=== PATIENT | male | born 1945 | race Caucasian/White ===

== ENCOUNTER 2016-11-07 09:59 | Emergency (ER) | payer OTHER ==
[~2016-11-07] VITALS: Ht 177.8 cm; Wt 102.0 kg
[~2016-11-07 09:59] MED LIST: Z.0.NO CURRENT MEDS
[2016-11-07 10:02] VITALS: BP 159/96; PULSE 76; RESP 16; TEMP 98.1; O2SAT 97
[2016-11-07] MEDS ORDERED: TRAM50TA PO (10:21)
[2016-11-07] MEDS ORDERED: LIDOCAINE HCL 1% 50 ML VIAL INFIL ONE (10:30)
[2016-11-07] MEDS ORDERED: TETANUS/DIPHTHERIA TOXOID ADULT 0.5 ML VIAL IM ONE (10:30)
--- NOTE | 2016-11-07 11:50 | RADHPO ---
EXAM DATE/TIME: 11/07/2016 10:27 [place] COMPARISON: No previous studies available for comparison. INDICATIONS : Laceration to distal left 3rd digit. MEDICAL HISTORY : Hypercholesterolemia. SURGICAL HISTORY : Appendectomy. Tibi/fiblual surgery. ENCOUNTER: Initial ACUITY: 1 day PAIN SCORE: 8/10 LOCATION: Left distal 3rd digit FINDINGS: Examination of the third digit of the left hand demonstrates no evidence of fracture or dislocation. No radiopaque foreign bodies are seen. However, there is suggestion of a soft tissue avulsion of the very tip of the third digit. CONCLUSION: 1. Radiographic findings concerning for soft tissue avulsion of the very tip of the third digit. 2. No acute fracture Estevan Varma MD on November 07, 2016 at 11:47 Board Certified Radiologist. This report was verified electronically.
--- NOTE | 2016-11-07 12:24 | PD ---
Physical Exam Date Seen by Provider: Nov 07, 2016 Time Seen by Provider: 12:19 Narrative Patient is a 71-year-old male presenting with avulsion injury to the distal third digit left hand. He was seen and managed by Dr. St who asked me to perform laceration repair. Please refer to her note for full history, physical and disposition. The patient states at 2 PM yesterday he was cutting with a saw and holding a small piece of wood that spun out of his hand and the would cut the distal part of his finger. He is on aspirin, no headache vitals. Bleeding was minimal. He is washed multiple times and kept covered. There is piece of tissue that was "hanging off "so he clipped it off. Denies any weakness, paresthesia or loss of range of motion. MSK: Third digit left hand has shallow avulsion injury to the distal tip of the digit not involving the nail bed, nail firmly adhered. On the radial side of the finger tissue was avulsed, there is a finalized flap overlying the ulnar aspect of the digit. No foreign bodies are contaminants. Full range of motion in flexion and extension of the digit even with isolation of the DIP joint. Data Data Last Documented VS Vital Signs Date Time Temp Pulse Resp B/P Pulse Ox O2 Delivery O2 Flow Rate FiO2 11/07/16 10:14 18 99 Room Air 11/07/16 10:02 98.1 76 159/96 Orders Lidocaine 1% Inj (50 Ml) (Xylocaine 1% I (11/07/16 10:30) Finger ([id number]) (11/07/16 10:18) Tetanus/Diphtheria Tox Adult (Tetanus/Di (11/07/16 10:30) MDM Medical Record Reviewed: Yes Supervised Visit with OBDULIA: Yes Narrative Course Patient is a 71-year-old male who had a avulsion injury to the distal third digit left finger yesterday afternoon. Dr. St is managing his care, please refer to her note for full history, physical and disposition. She has me to perform loose approximation of the flap which is vitalized. And was soaking and iodine and water and was well cleansed by myself prior to loosely hearing per attached procedure narrative. She will place him on prophylactic antibiotics. Nonadherent dressing was applied. Procedures Procedure Narrative LACERATION LOCATION: Distal third finger left hand LENGTH: 12MM SHAPE: Irregular, avulsion NUMBER OF STITCHES/DADA: 2 REPAIR: The area of the laceration was prepped with Betadine and sterilely draped. Digital block was performed with 2.5 cc of 1% lidocaine The wound was copiously irrigated and explored without evidence of foreign body, tendon injury or neurovascular injury. The wound was loosely approximated using 5-0 Prolene. This was a single layer repair. A sterile dressing was applied. The patient was advised to keep the dressing clean and dry. Patient tolerated the procedure well. Condition: Stable Janes Heard III Nov 07, 2016 12:24
[2016-11-07] MEDS ORDERED: MOTR200T4 PO (12:37)
[2016-11-07] MEDS ORDERED: BACT800T5 PO (12:37)
--- NOTE | 2016-11-07 12:38 | PD ---
HPI Chief Complaint: Injury Time Seen by Provider: 10:18 Travel History International Travel<30 days: No Contact w/Intl Traveler<30days: No Traveled to known affect area: No History of Present Illness HPI 71-year-old male presents to the ER today because he states that yesterday he was cutting wood on a saw when the wood kicked back and hit him in the left third digit. He has a 170 laceration in that spot which she states is hurting, 6 out of 10 pain, worse with movement. He states that he came in this morning because it is hurting more and he states it has not stopped bleeding. He denies any other issues or injuries. Modifying Factors: None Associated Signs & Symptoms: Injury to the left third digit, laceration Risk Factors: None PFSH Past Medical History Hx Anticoagulant Therapy: No Cardiovascular Problems: Yes (CHOL) High Cholesterol: Yes Diabetes: No Diminished Hearing: No Musculoskeletal: Yes (CHRONIC BACK PROBLEMS) Respiratory: No Tetanus Vaccination: > 5 Years Influenza Vaccination: No Past Surgical History Appendectomy: Yes Social History Alcohol Use: Yes ( 1 6 PK /MOP) Tobacco Use: Yes (1-2 DAILY) Substance Use: No Allergies-Medications (Allergen,Severity, Reaction): Coded Allergies: No Known Allergies (Verified , 11/07/16) Reported Meds & Prescriptions Reported Meds & Active Scripts Active Reported Tramadol (Tramadol HCl) 50 Mg Tab Unknown Dose PO BID PRN Review of Systems Except as stated in HPI: all other systems reviewed are Neg Physical Exam Narrative GENERAL: Well-nourished, well-developed elderly white male patient in no acute distress. SKIN: Warm and dry. HEAD: Normocephalic. NECK: Supple, trachea midline. Left hand: There is a irregular 1 cm laceration/avulsion of the tip of the left third digit. Neurovascularly intact with no subungual hematoma in that area. No surrounding erythema. No obvious foreign body identified. Data Data Last Documented VS Vital Signs Date Time Temp Pulse Resp B/P Pulse Ox O2 Delivery O2 Flow Rate FiO2 11/07/16 10:14 18 99 Room Air 11/07/16 10:02 98.1 76 159/96 Orders Lidocaine 1% Inj (50 Ml) (Xylocaine 1% I (11/07/16 10:30) Finger ([id number]) (11/07/16 10:18) Tetanus/Diphtheria Tox Adult (Tetanus/Di (11/07/16 10:30) MDM Medical Decision Making Medical Screen Exam Complete: Yes Emergency Medical Condition: Yes Medical Record Reviewed: Yes Interpretation(s) Last 24 hours Impressions Finger X-Ray 11/07/16 1018 Signed Impressions: Service Date/Time: Monday, November 07, 2016 10:27 - CONCLUSION: 1. Radiographic findings concerning for soft tissue avulsion of the very tip of the third digit. 2. No acute fracture Estevan Varma MD Differential Diagnosis Left third digit avulsion laceration injuryrule out underlying fractures Narrative Course Tetanus was updated in the ER. The digit was irrigated with copious normal saline with iodine. Sutures was done by PA after discussing the possibility of infection with the patient. At this point, my plan would be to release the patient with by mouth antibiotics and symptomatic relief or pain. Return for any worsening in pain, signs of infection, and as needed. The plan has been discussed with the patient and he states understanding. Diagnosis Primary Impression: Fingertip avulsion Med/Other Pt SpecificInfo: Prescription(s) given Scripts Ibuprofen (Motrin Ib)200 Mg [id number] Mg PO Q6H PRN (PAIN SCALE 1 TO 10) #20 TAB Ref 0 Prov:Anna Thompson MD 11/07/16 Sulfamethoxazole-Trimethoprim (Bactrim DS)800-160 Mg Tab1 Tab PO BID #14 TAB Ref 0 Prov:Anna Thompson MD 11/07/16 Disposition: 01 DISCHARGE HOME Condition: Stable Anna Thompson MD Nov 07, 2016 12:38
== END 2016-11-07 12:57 | disposition home or self-care (01) ==
LOC: PHED 09:59
DX: S61.213A Laceration without foreign body of left middle finger without damage to nail, initial encounter (principal); S61.203A Unspecified open wound of left middle finger without damage to nail, initial encounter; E78.00 Pure hypercholesterolemia, unspecified; F17.210 Nicotine dependence, cigarettes, uncomplicated; Z23 Encounter for immunization; W45.8XXA Other foreign body or object entering through skin, initial encounter; Y99.8 Other external cause status
CPT/HCPCS: 12001; 73140; 90471; 90714